=== PATIENT | female | born 1995 | race Caucasian/White ===

== ENCOUNTER 2019-04-21 18:29 | Emergency (ER) | payer MEDICAID ==
--- NOTE | 2019-04-21 19:08 | EDM.PDOCBH ---
ED HPI GENERAL MEDICAL PROBLEM - General Chief Complaint: Behavioral/Psych Stated Complaint: BROUGHT IN BY PD Time Seen by Provider: 04/21/19 19:05 Source of Information: Reports: Patient, Police History Limitations: Reports: No Limitations - History of Present Illness INITIAL COMMENTS - FREE TEXT/NARRATIVE: 23-year-old female who is brought to the emergency department by the [facility] secondary to reported text that she sent her mother stating she was going to slit her throat to kill herself. The patient is quite upset when she arrives. She is calm and cooperative me. She at first denies that she sent these text although the police show me copies copies of these text that the mother provided them. She also adamantly denies any suicidal ideation or intent or plan. She reports the me that she was not feeling well today and she had vomiting and diarrhea earlier in the day. That all resolved at about 2 PM today and she has been able to take liquids since 2 PM. She reports that she had texted her mother to try to get some help for her ( she had run out of supplies at home and also her menses and did not have appropriate supplies for that) and she reports that her mother never replied to her and she got very mad at her mother. She tells me that she eventually went to sleep and the police woke her up and brought her here. He denies any pain now. She rates her pain as a 0/10. She denies any suicidal or homicidal ideation. She denies any recent illicit drug use. She denies any alcohol use. She has had no dysuria or hematuria. There are no other associated signs or symptoms. There are no other modifying factors. Later on, the patient does admit that she texted her mother police showed me. She tells me, however, that she had no thoughts of wanting to kill herself and she has no thoughts of wanting to kill herself now but she was angry at her mother and she was trying to "get her attention". Onset: Today Duration: Constant, Improving Location: Reports: Other (No pain) Quality: Reports: Other (Not applicable) Severity: Moderate Improves with: Reports: None Worsens with: Reports: None Context: Reports: Other (As above) Associated Symptoms: Reports: No Other Symptoms Treatments TRAINING MANAGER: Reports: Other (see below) (Nothing) - Related Data Allergies Allergy/AdvReac Type Severity Reaction Status Date / Time No Known Allergies Allergy Verified 04/21/19 18:37 Home Meds: Home Meds NK [No Known Home Meds] 04/21/19 [History] Past Medical History Psychiatric History: Reports: Addiction (Methamphetamine abuse), Anxiety, Depression - Past Surgical History HEENT Surgical History: Reports: Adenoidectomy, Tonsillectomy Social & Family History - Tobacco Use Smoking Status *Q: Current Every Day Smoker Years of Tobacco use: 10 Packs/Tins Daily: 1 - Caffeine Use Caffeine Use: Reports: Coffee, Energy Drinks, Soda - Alcohol Use Alcohol Use History: Yes Alcohol Use Frequency: Socially - Recreational Drug Use Recreational Drug Use: Yes Recreational Drug Type: Reports: Marijuana/Hashish, Methamphetamine - Living Situation & Occupation Occupation: Unemployed ED ROS GENERAL - Review of Systems Review Of Systems: See Below Constitutional: Reports: No Symptoms HEENT: Reports: No Symptoms Respiratory: Reports: No Symptoms Cardiovascular: Reports: No Symptoms GI/Abdominal: Reports: Diarrhea, Nausea, Vomiting : Reports: No Symptoms Musculoskeletal: Reports: No Symptoms Skin: Reports: No Symptoms Neurological: Reports: No Symptoms Hematologic/Lymphatic: Reports: No Symptoms Immunologic: Reports: No Symptoms ED EXAM, BEHAVIORAL HEALTH - Physical Exam Exam: See Below Exam Limited By: No Limitations General Appearance: Alert, WD/WN, Anxious Eye Exam: Bilateral Eye: EOMI, Normal Inspection, PERRL Ears: Normal External Exam, Hearing Grossly Normal Nose: Normal Inspection, Normal Mucosa, No Blood Throat/Mouth: Normal Inspection, Normal Oropharynx, Normal Voice, No Airway Compromise Head: Atraumatic, Normocephalic Neck: Normal Inspection, Supple, Non-Tender, Full Range of Motion Respiratory/Chest: No Respiratory Distress, Lungs Clear, Normal Breath Sounds, No Accessory Muscle Use, Chest Non-Tender Cardiovascular: Normal Peripheral Pulses, No JVD, No Murmur, Tachycardia GI/Abdominal: Normal Bowel Sounds, Soft, Non-Tender, No Mass Back Exam: Normal Inspection, Full Range of Motion Neurological: Alert, Normal Mood/Affect, CN II-XII Intact, Normal Cognition, Normal Gait, No Motor/Sensory Deficits Psychiatric: Alert, Normal Affect, Normal Cognition, Oriented Skin Exam: Warm, Dry, Intact, Normal color, No rash, Other (No track castaneda) COURSE, BEHAVIORAL HEALTH COMP - Course Vital Signs: Last Vital Signs Temp 36.6 C 04/21/19 21:35 Pulse 89 04/21/19 21:35 Resp 17 04/21/19 21:35 BP 108/73 04/21/19 21:35 Pulse Ox 100 04/21/19 21:35 Orders, Labs, Meds: Active Orders 24 hr Category Date Time Status EKG Documentation Completion [RC] ASDIRECTED Care 04/21/19 19:10 Active EKG 12 Lead [EK] Routine Ther 04/21/19 19:08 Ordered Laboratory Tests 04/21/19 04/21/19 04/21/19 Range/Units 20:00 20:05 20:05 WBC 7.3 (4.5-12.0) X10-3/uL RBC 4.96 (3.23-5.20) x10(6)uL Hgb 15.1 (11.5-15.5) g/dL Hct 44.5 (30.0-51.3) % MCV 89.8 (80-96) fL MCH 30.5 (27.7-33.6) pg MCHC 33.9 (32.2-35.4) g/dL RDW 13.1 (11.5-15.5) % Plt Count 261 (125-369) X10(3)uL MPV 8.0 (7.4-10.4) fL Neut % (Auto) 63.4 (46-82) % Lymph % (Auto) 28.5 (13-37) % [place] % (Auto) 5.1 (4-12) % Eos % (Auto) 3 (1.0-5.0) % Baso % (Auto) 0 (0-2) % Neut # (Auto) 4.6 (1.6-8.3) # Lymph # (Auto) 2.1 (0.6-5.0) # [place] # (Auto) 0.4 (0.0-1.3) # Eos # (Auto) 0.2 (0.0-0.8) # Baso # (Auto) 0.0 (0.0-0.2) # Sodium 143 (135-145) mmol/L Potassium 4.1 (3.5-5.3) mmol/L Chloride 105 (100-110) mmol/L Carbon Dioxide 29 (21-32) mmol/L BUN 21 H (7-18) mg/dL Creatinine 0.9 (0.55-1.02) mg/dL Est Cr Clr Drug Dosing 94.54 mL/min Estimated GFR (MDRD) > 60 (>60) BUN/Creatinine Ratio 23.3 H (9-20) Glucose 100 (80-116) mg/dL Calcium 8.9 (8.6-10.2) mg/dL Total Bilirubin 0.4 (0.1-1.3) mg/dL AST 18 (5-25) IU/L ALT 34 (12-36) U/L Alkaline Phosphatase 91 (56-112) IU/L Total Protein 7.1 (6.0-8.0) g/dL Albumin 3.7 (3.5-5.2) g/dL Globulin 3.4 g/dL Albumin/Globulin Ratio 1.1 TSH, Ultra Sensitive (0.36-3.74) IU/mL Salicylates (<2.8) mg/dL Urine Opiates Screen Negative (NEGATIVE) Ur Oxycodone Screen Negative (NEGATIVE) Ur Propoxyphene Screen Negative (NEGATIVE) Acetaminophen (<2) ug/mL Ur Barbituates Screen Negative (NEGATIVE) Ur Tricyclics Screen Negative (NEGATIVE) Ur Phencyclidine Scrn Negative (NEGATIVE) Ur Amphetamine Screen Positive H (NEGATIVE) Urine MDMA Screen Negative (NEGATIVE) U Benzodiazepines Scrn Negative (NEGATIVE) U Cocaine Metab Screen Negative (NEGATIVE) U Marijuana (THC) Screen Negative (NEGATIVE) Ethyl Alcohol (<0.03) % 04/21/19 04/21/19 Range/Units 20:05 20:05 WBC (4.5-12.0) X10-3/uL RBC (3.23-5.20) x10(6)uL Hgb (11.5-15.5) g/dL Hct (30.0-51.3) % MCV (80-96) fL MCH (27.7-33.6) pg MCHC (32.2-35.4) g/dL RDW (11.5-15.5) % Plt Count (125-369) X10(3)uL MPV (7.4-10.4) fL Neut % (Auto) (46-82) % Lymph % (Auto) (13-37) % [place] % (Auto) (4-12) % Eos % (Auto) (1.0-5.0) % Baso % (Auto) (0-2) % Neut # (Auto) (1.6-8.3) # Lymph # (Auto) (0.6-5.0) # [place] # (Auto) (0.0-1.3) # Eos # (Auto) (0.0-0.8) # Baso # (Auto) (0.0-0.2) # Sodium (135-145) mmol/L Potassium (3.5-5.3) mmol/L Chloride (100-110) mmol/L Carbon Dioxide (21-32) mmol/L BUN (7-18) mg/dL Creatinine (0.55-1.02) mg/dL Est Cr Clr Drug Dosing mL/min Estimated GFR (MDRD) (>60) BUN/Creatinine Ratio (9-20) Glucose (80-116) mg/dL Calcium (8.6-10.2) mg/dL Total Bilirubin (0.1-1.3) mg/dL AST (5-25) IU/L ALT (12-36) U/L Alkaline Phosphatase (56-112) IU/L Total Protein (6.0-8.0) g/dL Albumin (3.5-5.2) g/dL Globulin g/dL Albumin/Globulin Ratio TSH, Ultra Sensitive 1.07 (0.36-3.74) IU/mL Salicylates 2.1 L (<2.8) mg/dL Urine Opiates Screen (NEGATIVE) Ur Oxycodone Screen (NEGATIVE) Ur Propoxyphene Screen (NEGATIVE) Acetaminophen < 2 L (<2) ug/mL Ur Barbituates Screen (NEGATIVE) Ur Tricyclics Screen (NEGATIVE) Ur Phencyclidine Scrn (NEGATIVE) Ur Amphetamine Screen (NEGATIVE) Urine MDMA Screen (NEGATIVE) U Benzodiazepines Scrn (NEGATIVE) U Cocaine Metab Screen (NEGATIVE) U Marijuana (THC) Screen (NEGATIVE) Ethyl Alcohol < 0.03 (<0.03) % Re-Assessment/Re-Exam: 04/21/2019, 9:15 p.m.: The patient is calm and cooperative. Her repeat blood pressure was 108/72 and her repeat pulse was 89. She is awake, alert and appropriate. She is oriented to, place, time and situation. She once again adamantly denies any suicidal ideation. She does admit to me that she did send a text to her mother stating that she was going to "slit her throat" but she reports that she was trying to get her mother's attention because her mother was not responding to her. She tells me that she had no suicidal thoughts or plan at that time. Her mother is here now and she again relates to me and to her mother that she does not want to kill or harm herself and that she has no plans to kill or harm herself. Her mother is willing to take her home at this point. I do not feel that she is a danger to herself or others. She did test positive for methamphetamines but she does not appear to be acutely intoxicated at this time. Therefore, I feel that she is able be discharged to her mother. Other is willing to take charge of her at this time. In addition, the patient will be patty with me for safety by signing her discharge paperwork Departure - Departure Time of Disposition: 21:40 Disposition: Home, Self-Care 01 Condition: Good Clinical Impression: Threatening suicide, Substance abuse, Methamphetamine use, Adjustment disorder with mixed emotional features - Discharge Information Instructions: Stimulant Use Disorder-Methamphetamines Referrals: PCP,None [Primary Care Provider] - Forms: ED Department Discharge Additional Instructions: Avoid using any illicit drugs. Drink plenty of fluids. Rest. Keep your proposed follow-up for initiating treatment for your methamphetamine abuse problem. You are being discharged to your mother at this time. If you begin to express that he wants to harm or kill yourself, your mother will call 911. By signing this discharge paperwork, you are affirming that you do not want to harm or kill yourself, that you do not have any plans to harm or kill yourself, and if you do begin to have thoughts of wanting to harm or kill yourself, you will not harm or kill yourself and you will tell someone around you or you will come back to the emergency department for reevaluation and treatment. Sepsis Event Note - Evaluation Sepsis Screening Result: No Definite Risk - Focused Exam Vital Signs: Vital Signs Temp Pulse Resp BP Pulse Ox 04/21/19 21:35 36.6 C 89 17 108/73 100 04/21/19 18:35 35.9 C 135 H 16 128/76 100 Date Exam was Performed: 04/22/19 Time Exam was Performed: 01:32 - My Orders Last 24 Hours: My Active Orders 04/21/19 19:08 EKG 12 Lead [EK] Routine 04/21/19 19:10 EKG Documentation Completion [RC] ASDIRECTED - Assessment/Plan Last 24 Hours: My Active Orders 04/21/19 19:08 EKG 12 Lead [EK] Routine 04/21/19 19:10 EKG Documentation Completion [RC] ASDIRECTED
[2019-04-21 20:27] LABS: ACETAMINOPHEN < 2 ug/mL (<2)
== END 2019-04-21 21:43 | disposition home or self-care (01) ==
LOC: FB.ED 18:29
DX: F43.29 Adjustment disorder with other symptoms (principal); F15.10 Other stimulant abuse, uncomplicated; R45.851 Suicidal ideations; F17.210 Nicotine dependence, cigarettes, uncomplicated
CPT/HCPCS: 36415; 80053; 80305-QW; 80307; 84443; 85025; 93005; 99284; 99285-25

== ENCOUNTER 2024-05-18 03:56 | Emergency (ER) | payer SELFPAY ==
[2024-05-18] MEDS: Doxycycline 100 MG Tab PO ONE (04:52)
== END 2024-05-18 04:55 | disposition home or self-care (01) ==
LOC: FB.ED 03:56
DX: S40.862A Insect bite (nonvenomous) of left upper arm, initial encounter (principal); L03.114 Cellulitis of left upper limb; F17.210 Nicotine dependence, cigarettes, uncomplicated; Z79.899 Other long term (current) drug therapy; W57.XXXA Bitten or stung by nonvenomous insect and other nonvenomous arthropods, initial encounter
CPT/HCPCS: 99283; A9270-GY

== ENCOUNTER 2024-12-16 11:19 | Emergency (ER) | payer MEDICAID ==
[2024-12-16] MEDS: methylPREDNISolone Sodium Succinate 125 MG/2 ML SDV IM ONE (11:51)
== END 2024-12-16 12:00 | disposition left against medical advice (07) ==
LOC: FB.ED 11:19
DX: T63.441A Toxic effect of venom of bees, accidental (unintentional), initial encounter (principal); R00.0 Tachycardia, unspecified; F17.200 Nicotine dependence, unspecified, uncomplicated
CPT/HCPCS: 96372; 99282; J2919; 99283